=== PATIENT | female | born 1990 | race African-American/Black ===

== ENCOUNTER 2016-08-13 08:16 | Emergency (ER) | payer OTHER ==
[~2016-08-13 08:16] MED LIST: FLAGYL PO; PAXIL PO
== END 2016-08-13 08:19 | disposition home or self-care (01) ==
LOC: CFTX 08:16
DX: J06.9 Acute upper respiratory infection, unspecified (principal); J30.2 Other seasonal allergic rhinitis; Z88.0 Allergy status to penicillin
CPT/HCPCS: 99282; 99283

== ENCOUNTER 2016-09-12 14:53 | Emergency (ER) | payer OTHER ==
--- NOTE | ~2016-09-12 | EKG ---
PATIENT: GRETEL MANUEL UNIT #: [id number] Ventricular Rate: 66 BPM Atrial Rate: 66 BPM P-R Interval: 174 ms QRS Duration: 82 ms Q-T Interval: 394 ms QTC Calculation(Bezet): 413 ms P [place]: 69 degrees Calculated R [place]: 74 degrees Calculated T [place]: 41 degrees Diagnosis Line: Normal sinus rhythm Diagnosis Line: Normal ECG Diagnosis Line: When compared with ECG of 09-NOV-2014 22:09, Diagnosis Line: No significant change was found Diagnosis Line: Confirmed by ARIADNA MITCHELL MD ([id number]) on 09/13/2016 Diagnosis Line: 6:38:05 PM INTERPRETING MD: STEPHEN VAIL
--- NOTE | ~2016-09-12 | CR72 ---
[facility] A Service of [facility] RADIOLOGY TEXT RESULTS PATIENT: GRETEL MANUEL LOCATION: [facility] : 86 UNIT #: [id number] AGE: [address]: Dima Reynolds MD SEX: F ORDER DR: [id number] [facility] [address] [place], [place] [address] [id number] E MR#: [id number] Acc #: [id number] NAME: GRETEL MANUEL. : 1990 SEX: F STUDY DATE/TIME: 09/12/2016 15:25 UNIT: [facility] ROOM: STUDY DESCRIPTION: CR Chest Single View Portable Attending Physician: Dima Reynolds M.D. Ordering Physician: Dima Reynolds M.D. Primary Care Physician: [facility]ly [facility]. MEDICAL IMAGING REPORT This report is preliminary unless electronic signature is present EXAM Portable chest 09/12/2016 HISTORY 26-year-old woman unexplained chest pain, past 2 days. COMPARISON Chest 11/10/2014. FINDINGS AP upright portable chest demonstrates normal cardiac size and configuration. Hilar structures and mediastinal contours are preserved. Bilateral lungs are expanded and clear. Costophrenic angles are preserved and bony thorax appears normal. IMPRESSION Negative chest Dictated by... Darinel Murphy M.D. THIS IS AN ELECTRONICALLY VERIFIED REPORT Darinel Murphy M.D. at 09/13/2016 8:09 AM GAL/jung TD: 09/12/2016 18:26 JOB #: [id number] MEDICAL IMAGING REPORT Page 1 of 1 COPY
[2016-09-12 15:17] LABS: BASOPHIL% 0.8 % (0-2.5); EOSINOPHIL# 0.1 X10e3 (0-0.7); EOSINOPHIL% 1.5 % (0.0-7.0); HEMATOCRIT 37.4 % (35.0-45.0); HEMOGLOBIN 12.4 gm/dL (12.0-16.0); LYMPHOCYTE# 2.1 X10e3 (1.0-3.5); LYMPHOCYTE% 38.5 % (17.0-45.0); MEAN CELL VOLUME 91.8 FL (83-96); MEAN CORPUSCULAR HEMOGLOBIN 30.4 PG (28-34); MEAN CORPUSCULAR HGB CONC 33.1 g/dL (30-36); MEAN PLATELET VOLUME 6.9 FL (6.5-11.5); MONOCYTE# 0.6 X10e3 (0-1.0); MONOCYTE% 10.4 % (3.0-12.0); NEUTROPHIL# 2.7 X10e3 (1.5-7.1); NEUTROPHIL% 48.8 % (40-75); PLATELET COUNT 257 X10e3 (140-420); RED BLOOD COUNT 4.07 X10e (3.90-5.30); RED CELL DISTRIBUTION WIDTH 12.7 % (11.0-15.5); WHITE BLOOD COUNT 5.5 X10e3 (4.0-10.5)
[2016-09-12 15:18] LABS: DIFF IND NO
[2016-09-12 15:28] LABS: POC - CKMB <1.0 ng/mL (0.0-7.9); POC - TROPONIN <0.05 ng/mL (<=0.05)
[2016-09-12 15:36] LABS: PARTIAL THROMBOPLASTIN TIME 29.4 SECONDS (23.5-31.3); PROTHROMBIN TIME (PATIENT) 10.4 SECONDS (9.6-11.5)
[2016-09-12 15:43] LABS: ALBUMIN SERUM 3.9 g/dL (3.5-5.0); ALKALINE PHOSPHATASE 57 U/L (32-92); ALT (SGPT) 14 U/L (10-40); AST (SGOT) 17 U/L (10-42); BILIRUBIN,TOTAL 0.3 mg/dL (0.2-2.0); BLOOD UREA NITROGEN 16 mg/dL (9-23); BUN/CREATININE RATIO 22.85; CALCIUM SERUM 8.6 mg/dL (8.4-10.2); CARBON DIOXIDE 24 mmol/L (22-31); CHLORIDE 103 mmol/L (100-111); CREATININE SERUM 0.7 mg/dL (0.6-1.4); GLOM FILT RATE Estimated 136.7 mL/min (>60); GLUCOSE FASTING 112 mg/dL (70-110); POTASSIUM 3.7 mmol/L (3.5-5.1); PROTEIN TOTAL SERUM 7.4 g/dL (6.0-8.3); SODIUM 135 mmol/L (135-145)
[2016-09-12 15:45] LABS: BILIRUBIN, DIRECT <0.1 mg/dL (0.0-0.2); BILIRUBIN,INDIRECT 0.2 mg/dL (0.0-0.9)
[2016-09-12 17:13] LABS: POC - CKMB <1.0 ng/mL (0.0-7.9); POC - TROPONIN <0.05 ng/mL (<=0.05)
== END 2016-09-12 17:34 | disposition home or self-care (01) ==
LOC: CED 14:53
PROVIDERS: Emergency Medicine
DX: R07.89 Other chest pain (principal); Z88.0 Allergy status to penicillin
CPT/HCPCS: 36415; 71010; 80048; 80076; 82553; 84484; 84703; 85025; 85610; 85730; 93005; 99284

== ENCOUNTER 2016-11-06 08:58 | Emergency (ER) | payer OTHER ==
[~2016-11-06] VITALS: Ht 165.1 cm; Wt 81.6 kg
== END 2016-11-06 09:31 | disposition home or self-care (01) ==
LOC: CED 08:58 → CFTX 08:58
DX: S39.012A Strain of muscle, fascia and tendon of lower back, initial encounter (principal); F17.210 Nicotine dependence, cigarettes, uncomplicated; Z88.0 Allergy status to penicillin; X50.9XXA Other and unspecified overexertion or strenuous movements or postures, initial encounter; Y92.009 Unspecified place in unspecified non-institutional (private) residence as the place of occurrence of the external cause
CPT/HCPCS: 99283